=== PATIENT | female | born 2000 | race Hispanic/Latino ===

== ENCOUNTER → 2022-08-17 | Emergency (ER) | payer OTHER ==
[~2022-08-17] MED LIST: diphenhydrAMINE 25 MG CAP ONE
== END ==
LOC: BURERS 21:18
DX: Z53.21 Procedure and treatment not carried out due to patient leaving prior to being seen by health care provider (principal)

== ENCOUNTER 2025-05-29 15:21 | Emergency (ER) | payer OTHER, SELFPAY | END 2025-05-29 16:19 | disposition home or self-care (01) | LOC: BURERS 15:21 | DX: J06.9 Acute upper respiratory infection, unspecified (principal); E03.9 Hypothyroidism, unspecified; F17.290 Nicotine dependence, other tobacco product, uncomplicated; Z79.899 Other long term (current) drug therapy | CPT/HCPCS: 87081; 87428; 87430; 99283 ==